=== PATIENT | male | born 1960 | race Caucasian/White ===

== ENCOUNTER 2017-06-07 11:05 | Emergency (ER) | payer SELFPAY ==
[~2017-06-07] VITALS: Ht 175.3 cm; Wt 91.5 kg
[~2017-06-07 11:05] MED LIST: ALBU6.7H INH; PRED20 PO; Z.0.NO CURRENT MEDS
[2017-06-07 11:08] VITALS: BP 125/81; PULSE 90; RESP 18; TEMP 98.7; O2SAT 95
[2017-06-07] MEDS ORDERED: SODIUM CHLORIDE 0.9% FLUSH 10 ML FLUSH IVF PRN (11:30)
[2017-06-07] MEDS ORDERED: LIDOCAINE 1%/EPINEPHrine 1:100,000 SOLN 20 ML VIAL INFIL ONE (11:30)
[2017-06-07 11:39] VITALS: BP 124/75
[2017-06-07 11:48] LABS: AUTOMATED NEUTROPHIL # 5.3 TH/MM3 (1.8-7.7); BASOPHIL # 0.1 TH/MM3 (0-0.2); BASOPHIL % 1.4 % (0.0-2.0); EOSINOPHIL # 0.2 TH/MM3 (0-0.4); EOSINOPHIL % 2.4 % (0.0-4.0); HEMATOCRIT 45.6 % (39.0-51.0); HEMOGLOBIN 15.5 GM/DL (13.0-17.0); LYMPH % 27.3 % (9.0-44.0); LYMPHOCYTE # 2.5 TH/MM3 (1.0-4.8); MEAN CELL VOLUME 93.3 FL (80.0-100.0); MEAN CORPUSCULAR HEMOGLOBIN 31.7 PG (27.0-34.0); MEAN PLATELET VOLUME 7.9 FL (7.0-11.0); MONO % 11.1 % (0.0-8.0); NEUT % 57.8 % (16.0-70.0); PLATELET COUNT 329 TH/MM3 (150-450); RED BLOOD COUNT 4.89 MIL/MM3 (4.50-5.90); RED CELL DISTRIBUTION WIDTH 13.4 % (11.6-17.2); WHITE BLOOD COUNT 9.2 TH/MM3 (4.0-11.0)
[2017-06-07 11:54] LABS: INTERNATIONAL NORMALIZED RATIO 1.1 RATIO; PROTHROMBIN TIME - PATIENT 10.7 SEC (9.8-11.6)
[2017-06-07 12:02] LABS: ALKALINE PHOSPHATASE 83 U/L (45-117); TOTAL BILIRUBIN ADULT 0.4 MG/DL (0.2-1.0); TOTAL PROTEIN 8.3 GM/DL (6.4-8.2); TROPONIN I LESS THAN 0.02 NG/ML (0.02-0.05)
[2017-06-07 12:06] LABS: ALBUMIN 4.1 GM/DL (3.4-5.0); ALT (GPT) 55 U/L (12-78); AST (GOT) 27 U/L (15-37); BICARBONATE 29.7 MEQ/L (21.0-32.0); BLOOD UREA NITROGEN 13 MG/DL (7-18); CALCIUM 8.8 MG/DL (8.5-10.1); CHLORIDE 102 MEQ/L (98-107); CREATININE 1.06 MG/DL (0.60-1.30); GLOMERULAR FILTRATION RATE 73 ML/MIN (>89); GLUCOSE,RANDOM 91 MG/DL (74-106); MAGNESIUM 2.2 MG/DL (1.5-2.5); SODIUM (NA) 137 MEQ/L (136-145)
--- NOTE | 2017-06-07 12:10 | RADRPT ---
EXAM DATE/TIME: 06/07/2017 11:33 [place] COMPARISON: No previous studies available for comparison. INDICATIONS : Vomiting since last night. Patient had a cyst burst on his right upper back two days ago. Ever since then the patient has felt unwell. MEDICAL HISTORY : None. SURGICAL HISTORY : None. ENCOUNTER: Initial ACUITY: 2 days PAIN SCORE: 0/10 LOCATION: Bilateral chest FINDINGS: A single view of the chest demonstrates the lungs to be symmetrically aerated without evidence of mas s, infiltrate or effusion. The cardiomediastinal contours are unremarkable. Osseous structures are intact. CONCLUSION: No acute disease. Hood Blankenship MD on June 07, 2017 at 12:08 Board Certified Radiologist. This report was verified electronically.
[2017-06-07] MEDS ORDERED: PERC5TAB12 PO (12:49)
[2017-06-07] MEDS ORDERED: BACT800T5 PO (12:49)
[2017-06-07] MEDS ORDERED: CEPH-460 PO (12:49)
--- NOTE | 2017-06-07 12:50 | PD ---
HPI Chief Complaint: Skin Problem Time Seen by Provider: 11:19 Travel History International Travel<30 days: No Contact w/Intl Traveler<30days: No Traveled to known affect area: No History of Present Illness HPI Patient is a 57-year-old male presenting to the emergency department for evaluation of an abscess to his right upper back. Patient states he has had a sebaceous cyst there for 10 years. It has gotten progressively larger however was never significantly painful until . On and started draining spontaneously, purulent drainage. Patient states the pain is a 7 out of 10 and is sore and throbbing. He has been applying [id number] topical analgesic spray with no significant improvement. He denies any fever or chills but reports that the pain radiates through to the right anterior chest wall. He also reports a cough and feeling short of breath. Patient states that due to the pain he was nauseated and dry heaved last night. Cough is nonproductive , patient also reports nasal congestion. He denies any fever, chills, sore throat and headache. Patient denies any significant past medical history. He is current daily tobacco user. PFSH Past Medical History Medical History: Denies Significant Hx Integumentary: Yes (MULTIPLT SKIN TERS AND ABASIONS ) Past Surgical History Tonsillectomy: Yes Social History Alcohol Use: No Tobacco Use: Yes (1 PPD) Substance Use: No Allergies-Medications (Allergen,Severity, Reaction): Coded Allergies: No Known Allergies (Verified Adverse Reaction, Unknown, 06/07/17) Reported Meds & Prescriptions Reported Meds & Active Scripts Active Percocet (Oxycodone-Acetaminophen) 5-325 mg Tab 1 Tab PO Q4H PRN Bactrim DS (Sulfamethoxazole-Trimethoprim) 800-160 Mg Tab 1 Tab PO BID Keflex (Cephalexin) 500 Mg Cap 500 Mg PO Q12H 10 Days Review of Systems Except as stated in HPI: all other systems reviewed are Neg General / Constitutional: No: Fever, Chills HENT: No: Headaches Cardiovascular: Positive: Chest Pain or Discomfort, No: Palpitations, Tachycardia, Diaphoresis, Dyspnea on exertion, Edema Respiratory: Positive: Cough, Shortness of Breath Gastrointestinal: Positive: Nausea, Vomiting, No: Abdominal Pain Genitourinary: No: Dysuria Skin: Positive Lumps, Positive Change in Pigmentation Neurologic: No: Weakness, Dizziness, Syncope Physical Exam Narrative GENERAL: Well-developed, well-nourished, alert male. Resting comfortably in no acute distress. SKIN: Warm and dry. 7 cm x 4 cm cyst to right upper back, mildly erythematous and tender to palpation. HEAD: Atraumatic. Normocephalic. EYES: Pupils equal and round. No scleral icterus. No injection or drainage. ENT: No nasal bleeding or discharge. Mucous membranes pink and moist. NECK: Trachea midline. No JVD. CARDIOVASCULAR: Regular rate and rhythm. RESPIRATORY: No accessory muscle use. Clear to auscultation. Breath sounds equal bilaterally. GASTROINTESTINAL: Abdomen soft, non-tender, nondistended. Hepatic and splenic margins not palpable. MUSCULOSKELETAL: Extremities without clubbing, cyanosis, or edema. No obvious deformities. NEUROLOGICAL: Awake and alert. No obvious cranial nerve deficits. Motor grossly within normal limits. Five out of 5 muscle strength in the arms and legs. Normal speech. PSYCHIATRIC: Appropriate mood and affect; insight and judgment normal. Data Data Last Documented VS Vital Signs Date Time Temp Pulse Resp B/P (MAP) Pulse Ox O2 Delivery O2 Flow Rate FiO2 06/07/17 11:39 124/75 (91) 06/07/17 11:08 98.7 90 18 95 Room Air Orders Orders Electrocardiogram (06/07/17 11:26) Ckmb (Isoenzyme) Profile (06/07/17 11:26) Complete Blood Count With Diff (06/07/17 11:26) Comprehensive Metabolic Panel (06/07/17 11:26) Magnesium (Mg) (06/07/17 11:26) Prothrombin Time / Inr (Pt) (06/07/17 11:26) Act Partial Throm Time (Ptt) (06/07/17 11:26) Troponin I (06/07/17 11:26) Chest, Single Ap (06/07/17 11:26) Ecg Monitoring (06/07/17 11:26) Bilateral Bp Monitoring (06/07/17 11:26) Iv Access Insert/Monitor (06/07/17 11:26) Oximetry (06/07/17 11:26) Oxygen Administration (06/07/17 11:26) Sodium Chloride 0.9% Flush (Ns Flush) (06/07/17 11:30) Wound Culture And Gram Stain (06/07/17 11:26) Lidocai-Epi 1%-1:100,000 Inj (Xylocaine- (06/07/17 11:30) CKMB (06/07/17 11:36) CKMB% (06/07/17 11:36) Ed Discharge Order (06/07/17 12:50) Labs Laboratory Tests Test 06/07/17 11:36 White Blood Count 9.2 TH/MM3 Red Blood Count 4.89 MIL/MM3 Hemoglobin 15.5 GM/DL Hematocrit 45.6 % Mean Corpuscular Volume 93.3 FL Mean Corpuscular Hemoglobin 31.7 PG Mean Corpuscular Hemoglobin Concent 34.0 % Red Cell Distribution Width 13.4 % Platelet Count 329 TH/MM3 Mean Platelet Volume 7.9 FL Neutrophils (%) (Auto) 57.8 % Lymphocytes (%) (Auto) 27.3 % Monocytes (%) (Auto) 11.1 % Eosinophils (%) (Auto) 2.4 % Basophils (%) (Auto) 1.4 % Neutrophils # (Auto) 5.3 TH/MM3 Lymphocytes # (Auto) 2.5 TH/MM3 Monocytes # (Auto) 1.0 TH/MM3 Eosinophils # (Auto) 0.2 TH/MM3 Basophils # (Auto) 0.1 TH/MM3 CBC Comment DIFF FINAL Differential Comment Prothrombin Time 10.7 SEC Prothromb Time International Ratio 1.1 RATIO Activated Partial Thromboplast Time 26.4 SEC Blood Urea Nitrogen 13 MG/DL Creatinine 1.06 MG/DL Random Glucose 91 MG/DL Total Protein 8.3 GM/DL Albumin 4.1 GM/DL Calcium Level 8.8 MG/DL Magnesium Level 2.2 MG/DL Alkaline Phosphatase 83 U/L Aspartate Amino Transf (AST/SGOT) 27 U/L Alanine Aminotransferase (ALT/SGPT) 55 U/L Total Bilirubin 0.4 MG/DL Sodium Level 137 MEQ/L Potassium Level 4.6 MEQ/L Chloride Level 102 MEQ/L Carbon Dioxide Level 29.7 MEQ/L Anion Gap 5 MEQ/L Estimat Glomerular Filtration Rate 73 ML/MIN Total Creatine Kinase 115 U/L Creatine Kinase MB 1.1 NG/ML Troponin I LESS THAN 0.02 NG/ML MDM Medical Decision Making Medical Screen Exam Complete: Yes Emergency Medical Condition: Yes Interpretation(s) Last Impressions Chest X-Ray 06/07/17 1126 Signed Impressions: Service Date/Time: Wednesday, June 07, 2017 11:33 - CONCLUSION: No acute disease. Hood Blankenship MD Laboratory Tests Test 06/07/17 11:36 White Blood Count 9.2 TH/MM3 Red Blood Count 4.89 MIL/MM3 Hemoglobin 15.5 GM/DL Hematocrit 45.6 % Mean Corpuscular Volume 93.3 FL Mean Corpuscular Hemoglobin 31.7 PG Mean Corpuscular Hemoglobin Concent 34.0 % Red Cell Distribution Width 13.4 % Platelet Count 329 TH/MM3 Mean Platelet Volume 7.9 FL Neutrophils (%) (Auto) 57.8 % Lymphocytes (%) (Auto) 27.3 % Monocytes (%) (Auto) 11.1 % Eosinophils (%) (Auto) 2.4 % Basophils (%) (Auto) 1.4 % Neutrophils # (Auto) 5.3 TH/MM3 Lymphocytes # (Auto) 2.5 TH/MM3 Monocytes # (Auto) 1.0 TH/MM3 Eosinophils # (Auto) 0.2 TH/MM3 Basophils # (Auto) 0.1 TH/MM3 CBC Comment DIFF FINAL Differential Comment Prothrombin Time 10.7 SEC Prothromb Time International Ratio 1.1 RATIO Activated Partial Thromboplast Time 26.4 SEC Blood Urea Nitrogen 13 MG/DL Creatinine 1.06 MG/DL Random Glucose 91 MG/DL Total Protein 8.3 GM/DL Albumin 4.1 GM/DL Calcium Level 8.8 MG/DL Magnesium Level 2.2 MG/DL Alkaline Phosphatase 83 U/L Aspartate Amino Transf (AST/SGOT) 27 U/L Alanine Aminotransferase (ALT/SGPT) 55 U/L Total Bilirubin 0.4 MG/DL Sodium Level 137 MEQ/L Potassium Level 4.6 MEQ/L Chloride Level 102 MEQ/L Carbon Dioxide Level 29.7 MEQ/L Anion Gap 5 MEQ/L Estimat Glomerular Filtration Rate 73 ML/MIN Total Creatine Kinase 115 U/L Creatine Kinase MB 1.1 NG/ML Troponin I LESS THAN 0.02 NG/ML Vital Signs Date Time Temp Pulse Resp B/P (MAP) Pulse Ox O2 Delivery O2 Flow Rate FiO2 06/07/17 11:39 124/75 (91) 06/07/17 11:08 98.7 90 18 125/81 (96) 95 Room Air Differential Diagnosis Cellulitis versus abscess versus infected sebaceous cyst versus less likely ACS versus other Narrative Course Patient is a 57-year-old male that presented to emergency department for evaluation of an infected sebaceous cyst to his right upper back. Initially he complained that the pain radiated to his right anterior chest wall. For this reason cardiac enzymes, chest x-ray was ordered as well as an EKG. EKG was reviewed by my attending physician, EKG shows sinus rhythm with a rate of 81. Please see procedure report for I&D. Patient reported that he no longer felt short of breath or had any anterior chest pain after the I&D. Labs reviewed, CBC with no acute abnormality, chemistry with no acute findings, cardiac enzymes are negative 1 set. Chest x-ray which is read by the radiologist shows no acute disease. Patient tolerated procedure well. He will be discharged home on antibiotics. He was encouraged to return to emergency department 2 days to have packing removed, sooner if needed. Patient was given verbal wound care instructions. Patient verbalized understanding of these instructions. Patient is stable for discharge. Procedures Procedure Narrative After the risks and benefits were discussed the following procedure was performed: INCISION AND DRAINAGE OF ABSCESS: The area was prepped and was sterilely draped. A subcutaneous wheal of 1 % Xylocaine with a total number 5 mL was used to anesthetize the area. The area was properly anesthetized. A number 11 scalpel was used to make a 1.5-cm incision across the area of the abscess. A significant amount of cheese-like, malodorous, waxy drainage expressed. Cultures were obtained. The abscess was drained an irrigated with normal saline. Quarter inch iodoform packing was placed in the wound. Sterile dressing applied. Patient advised to have packing removed in two days. Diagnosis Primary Impression: Infected sebaceous cyst of skin Additional Impression: Encounter for incision and drainage procedure Referrals: [facility] To establish primary care Patient Instructions: Dermal Cyst Excision (DC), General Instructions, Incision and Drainage (ED) Additional Instructions: Return to emergency department in 48 hours to have packing removed Return to emergency department sooner for any new or worsening symptoms Complete full course of antibiotics as prescribed Establish care with a primary doctor or at the [facility] for routine health care Do not drive or operate machinery while taking narcotic pain medication Leave packing in place, he may change dressings daily and as needed for soiling Med/Other Pt SpecificInfo: Prescription(s) given Scripts Oxycodone-Acetaminophen (Percocet) 5-325 mg Tab 1 TAB PO Q4H Y for PAIN, #12 TAB 0 Refills Prov: Bernie Jarvis 06/07/17 Sulfamethoxazole-Trimethoprim (Bactrim DS) 800-160 Mg Tab 1 TAB PO BID for Infection, #20 TAB 0 Refills Prov: Bernie Jarvis 06/07/17 Cephalexin (Keflex) 500 Mg Cap 500 MG PO Q12H for Infection for 10 Days, #20 CAP 0 Refills Prov: Bernie Jarvis 06/07/17 Disposition: 01 DISCHARGE HOME Condition: Stable Bernie Jarvis Jun 07, 2017 12:50
--- NOTE | 2017-06-07 22:20 | EKG ---
Date Performed: 06/07/2017 Time Performed: 11:40:37 PTAGE: 57 years EKG: Sinus rhythm PATTERN CONSISTENT WITH PULMONARY DISEASE POSSIBLE RIGHT VENTRICULAR HYPERTROPHY ABNORMAL ECG PREVIOUS TRACING : 02/22/2001 12.31 Compared to prior tracing no significant change DOCTOR: Rj Mg Interpretating Date/Time 06/07/2017 22:18:37
== END 2017-06-07 13:00 | disposition home or self-care (01) ==
LOC: NEPC 11:05
DX: L02.212 Cutaneous abscess of back [any part, except buttock and flank] (principal); L72.3 Sebaceous cyst; R94.31 Abnormal electrocardiogram [ECG] [EKG]; R05 Cough; R06.02 Shortness of breath; R11.0 Nausea; R09.81 Nasal congestion; F17.210 Nicotine dependence, cigarettes, uncomplicated
CPT/HCPCS: 10060; 10061; 71010; 80053; 82550; 82552; 83735; 84484; 85025; 85610; 85730; 87070; 87185; 93005

== ENCOUNTER 2017-06-09 11:33 | Emergency (ER) | payer SELFPAY ==
[~2017-06-09] VITALS: Ht 175.3 cm; Wt 82.0 kg
[~2017-06-09 11:33] MED LIST changes: -ALBU6.7H INH; +BACT800T5 PO; +CEPH-460 PO; +PERC5TAB12 PO; -PRED20 PO; -Z.0.NO CURRENT MEDS
[2017-06-09 11:35] VITALS: BP 117/77; PULSE 80; RESP 18; TEMP 97.5; O2SAT 95
--- NOTE | 2017-06-09 12:02 | PD ---
HPI Chief Complaint: Wound/Suture/Staple Re-Check Time Seen by Provider: 11:41 Travel History International Travel<30 days: No Contact w/Intl Traveler<30days: No Traveled to known affect area: No History of Present Illness HPI 57-year-old male previously seen for sebaceous cyst to the upper back with I&D performed 2 days prior to this visit. Patient states no real problems. He seems to think sits improving. He is currently on antibiotics and pain medication. He is here for packing removal and wound check. He has no known drug allergies. PFSH Past Medical History Integumentary: Yes (MULTIPLT SKIN TERS AND ABASIONS ) Past Surgical History Tonsillectomy: Yes Social History Alcohol Use: No Tobacco Use: Yes (1 PPD) Substance Use: No Allergies-Medications (Allergen,Severity, Reaction): Coded Allergies: No Known Allergies (Verified Adverse Reaction, Unknown, 06/09/17) Reported Meds & Prescriptions Reported Meds & Active Scripts Active Percocet (Oxycodone-Acetaminophen) 5-325 mg Tab 1 Tab PO Q4H PRN Bactrim DS (Sulfamethoxazole-Trimethoprim) 800-160 Mg Tab 1 Tab PO BID Keflex (Cephalexin) 500 Mg Cap 500 Mg PO Q12H 10 Days Review of Systems Except as stated in HPI: all other systems reviewed are Neg General / Constitutional: No: Fever, Chills Eyes: No: Visual changes HENT: No: Headaches Cardiovascular: No: Chest Pain or Discomfort Respiratory: No: Shortness of Breath Gastrointestinal: No: Abdominal Pain Genitourinary: No: Dysuria Musculoskeletal: No: Pain Skin: Positive Other (see history present illness), No Rash Neurologic: No: Weakness Psychiatric: No: Depression Endocrine: No: Polydipsia Hematologic/Lymphatic: No: Easy Bruising Physical Exam Narrative GENERAL: Patient appears in no acute distress. SKIN: Warm and dry. Normal color. Normal turgor. Patient has what appears to be improving sebaceous cyst with cellulitis and drainage to the mid upper back. Packing is in place. Erythema seems to be improving. Tenderness is minimal. HEAD: Atraumatic. Normocephalic. EYES: Pupils equal and round. No scleral icterus. No injection or drainage. ENT: No nasal bleeding or discharge. Mucous membranes pink and moist. Pharynx is clear. Airway is patent. NECK: Trachea midline. Supple and nontender. CARDIOVASCULAR: Regular rate and rhythm. RESPIRATORY: No accessory muscle use. Clear to auscultation. Breath sounds equal bilaterally. MUSCULOSKELETAL: Extremities without clubbing, cyanosis, or edema. No obvious deformities. NEUROLOGICAL: Awake and alert. No obvious cranial nerve deficits. Motor grossly within normal limits. Five out of 5 muscle strength in the arms and legs. Normal speech. PSYCHIATRIC: Appropriate mood and affect; insight and judgment normal. Data Data Last Documented VS Vital Signs Date Time Temp Pulse Resp B/P (MAP) Pulse Ox O2 Delivery O2 Flow Rate FiO2 06/09/17 11:35 97.5 80 18 117/77 (90) 95 Room Air MDM Medical Decision Making Medical Screen Exam Complete: Yes Emergency Medical Condition: Yes Medical Record Reviewed: Yes Differential Diagnosis Sebaceous cyst. I&D. Wound check. Packing removal. Narrative Course Packing is removed without difficulty. Further packing is not felt warranted at this time. Wound care as discussed. Patient to finish his antibiotics as previously prescribed. Diagnosis Primary Impression: Wound check, abscess Patient Instructions: General Instructions Additional Instructions: Packing is removed without difficulty. Further packing is not felt warranted at this time. Wound care as discussed. Patient to finish his antibiotics as previously prescribed. Med/Other Pt SpecificInfo: No Change to Meds, Wound Care Disposition: 01 DISCHARGE HOME Condition: Stable Kirit Ryder Jun 09, 2017 12:02
== END 2017-06-09 12:11 | disposition home or self-care (01) ==
LOC: NEPK 11:33
DX: Z48.00 Encounter for change or removal of nonsurgical wound dressing (principal); L72.3 Sebaceous cyst; F17.200 Nicotine dependence, unspecified, uncomplicated; Z98.890 Other specified postprocedural states
CPT/HCPCS: 99281